=== PATIENT | female | born 1990 | race Caucasian/White ===

== ENCOUNTER 2023-03-26 08:11 | Observation (INO) | payer OTHER ==
[2023-03-26] MEDS ORDERED: LIDOCAINE 5% TOPICAL PATCH TP ONE (08:45)
[2023-03-26] MEDS ORDERED: KETOROLAC TROMETHAMINE 15 MG/ML VIAL IVPUSH ONE (08:45)
[2023-03-26] MEDS ORDERED: ACETAMINOPHEN 1000 MG/100 ML BAG IVPB ONE ×2 (08:45→23:28)
[2023-03-26] MEDS ORDERED: LIDOCAINE 4% PATCH TP ONE ×2 (08:53→22:53)
[2023-03-26] MEDS ORDERED: METHOCARBAMOL 500 MG TABLET PO ONE (09:30)
[2023-03-26] MEDS ORDERED: morphine CARPU-JECT 4 MG/1 ML DISP.SYRIN IVPUSH ONE (11:11)
[2023-03-26] MEDS ORDERED: morphine SULFATE 4 MG/ML VIAL ONE (11:16)
[2023-03-26 12:51] LABS: BASO % 0.7 % (0-2.0); EOS % 1.5 % (0-4.5); HEMATOCRIT 41.2 % (32.4-45.2); HEMOGLOBIN 13.4 GM/dL (10.7-15.3); LYMPH % 36.3 % (8-40); MCH 28.7 pg (25.7-33.7); MCHC 32.6 g/dl (32.0-36.0); MEAN PLT VOLUME 7.7 fl (7.5-11.1); MONO % 5.1 % (3.8-10.2); NEUT % 56.4 % (42.8-82.8); PLATELET COUNT 263 10^3/uL (134-434); RBC 4.67 M/mm3 (3.60-5.2); RDW 13.3 % (11.6-15.6); WHITE BLOOD COUNT 8.2 K/mm3 (4.0-10.0)
[2023-03-26 13:09] LABS: CHLORIDE 110 mmol/L (98-107); POTASSIUM 3.4 mmol/L (3.5-5.1); SODIUM 140 mmol/L (136-145)
[2023-03-26 13:11] LABS: CALCIUM 8.4 mg/dL (8.5-10.1)
[2023-03-26 13:12] LABS: ALBUMIN 3.5 g/dl (3.4-5.0); ANION GAP 7 mmol/L (4-13); BLOOD UREA NITROGEN 10.6 mg/dL (7-18); CO2 23 mmol/L (21-32); GLUCOSE,RANDOM 91 mg/dL (74-106)
[2023-03-26 13:15] LABS: CREATININE 0.7 mg/dL (0.55-1.3); SGOT/AST 8 U/L (15-37); SGPT/ALT 14 U/L (13-61)
[2023-03-26 13:16] LABS: BILIRUBIN,TOTAL 0.6 mg/dL (0.2-1); TOT PROT 6.7 g/dl (6.4-8.2)
[2023-03-26 13:18] LABS: ALK PHOS 48 U/L (45-117)
[2023-03-26] MEDS ORDERED: GABAPENTIN 100 MG CAPSULE ONE ×2 (14:59→22:53)
[2023-03-26] MEDS ORDERED: CYCLOBENZAPRINE HCL 5 MG TABLET ONE ×2 (14:59→22:53)
[2023-03-26] MEDS: GABAPENTIN 100 MG CAPSULE PO SCH ×2 (15:03→23:06)
[2023-03-26] MEDS: CYCLOBENZAPRINE HCL 5 MG TABLET PO SCH ×2 (15:03→23:06)
[2023-03-26] MEDS ORDERED: methylPREDNISolone NA SUCC 40 MG/1 ML VIAL ONE (15:16)
[2023-03-26] MEDS: methylPREDNISolone 8 MG TABLET PO SCH (15:19)
[2023-03-26] MEDS ORDERED: KETOROLAC TROMETHAMINE 15 MG/ML VIAL ONE ×2 (17:31→23:36)
[2023-03-26] MEDS: KETOROLAC TROMETHAMINE 15 MG/ML VIAL IVPUSH PRN ×2 (17:32→23:52)
[2023-03-26] MEDS ORDERED: LIDOCAINE PATCH REMOVAL MC SCH (22:00)
[2023-03-27 01:30] VITALS: RESP 16
[2023-03-27] MEDS ORDERED: ACETAMINOPHEN 1000 MG/100 ML BAG IVPB PRN (04:30)
[2023-03-27] MEDS: KETOROLAC TROMETHAMINE 15 MG/ML VIAL IVPUSH PRN (06:31)
[2023-03-27] MEDS: GABAPENTIN 100 MG CAPSULE PO SCH (06:31)
[2023-03-27] MEDS: CYCLOBENZAPRINE HCL 5 MG TABLET PO SCH (06:31)
[2023-03-27] MEDS ORDERED: GABAPENTIN 100 MG CAPSULE PO SCH (07:52)
[2023-03-27] MEDS ORDERED: oxyCODONE HCL 5 MG TABLET PO PRN ×2 (08:44)
[2023-03-27] MEDS ORDERED: ACETAMINOPHEN 325 MG TABLET (FP) PO SCH (09:00)
[2023-03-27] MEDS ORDERED: ACETAMINOPHEN 500 MG TABLET (FP) PO SCH (09:00)
[2023-03-27] MEDS: methylPREDNISolone 8 MG TABLET PO SCH (09:36)
[2023-03-27] MEDS ORDERED: methylPREDNISolone 4 MG TABLET PO ONE (09:45)
[2023-03-27 11:56] VITALS: BP 123/65; PULSE 85; TEMP 97.8
[2023-03-27] MEDS ORDERED: DOCUSATE SODIUM 100 MG CAPSULE (FP) PO SCH (22:00)
== END 2023-03-27 13:03 | disposition home or self-care (01) ==
LOC: JER 08:11 → JERBED 14:51 → J8W 03-27 01:06
PROVIDERS: ADMIT Internal Medicine; ATTEND Nurse Practitioner Acute Care
PROC: 3E0333Z Introduction of Anti-inflammatory into Peripheral Vein, Percutaneous Approach (ICD-10-PCS; principal; 2023-03-26)
PROC: 3E033NZ Introduction of Analgesics, Hypnotics, Sedatives into Peripheral Vein, Percutaneous Approach (ICD-10-PCS; 2023-03-26)
DX: M48.00 Spinal stenosis, site unspecified (principal); M54.50 Low back pain, unspecified; Z29.89 Encounter for other specified prophylactic measures
CPT/HCPCS: 36415; 72131-TC; 72148-TC; 80053; 84702; 85025; 97116-GP; 97162-GP; 99285-25; G0378